=== PATIENT | female | born 1965 ===

== ENCOUNTER → 2018-04-02 15:00 | Outpatient (CLI) | payer OTHER, SELFPAY | DX: Z23 Encounter for immunization (principal) | CPT/HCPCS: 90471; 90686 ==

== ENCOUNTER → 2019-03-18 11:47 | Outpatient (CLI) | payer OTHER, SELFPAY | DX: Z23 Encounter for immunization (principal) ==

== ENCOUNTER → 2020-04-07 15:16 | Outpatient (CLI) | payer OTHER, SELFPAY | PROVIDERS: Referring Provider Internal Medicine; Visit Provider Internal Medicine | DX: Z23 Encounter for immunization (principal) | CPT/HCPCS: 90471; 90686 ==